=== PATIENT | male | born 1960 | race Caucasian/White ===

== ENCOUNTER → 2019-12-03 11:09 | Outpatient (BNVA) | payer BC, SELFPAY | PROVIDERS: Family Provider Internal Medicine; PCP Internal Medicine; Visit Provider Family Medicine | DX: I10 Essential (primary) hypertension (principal); R35.1 Nocturia; F41.9 Anxiety disorder, unspecified; F17.219 Nicotine dependence, cigarettes, with unspecified nicotine-induced disorders; H16.133 Photokeratitis, bilateral | CPT/HCPCS: 80053; 80061; 82044; 84153; 85025 ==

== ENCOUNTER → 2019-12-04 16:38 | Outpatient (BNVA) | payer BC, SELFPAY | PROVIDERS: Family Provider Internal Medicine; PCP Internal Medicine; Visit Provider Family Medicine | DX: D53.9 Nutritional anemia, unspecified (principal); I10 Essential (primary) hypertension; R35.1 Nocturia; F41.9 Anxiety disorder, unspecified; F17.219 Nicotine dependence, cigarettes, with unspecified nicotine-induced disorders; H16.133 Photokeratitis, bilateral | CPT/HCPCS: 82607 ==

== ENCOUNTER → 2020-01-19 13:17 | Outpatient (BNVA) | payer BC, SELFPAY | PROVIDERS: Family Provider Internal Medicine; PCP Internal Medicine; Referring Provider Family Medicine; Visit Provider Dermatology | DX: D48.9 Neoplasm of uncertain behavior, unspecified (principal); L57.0 Actinic keratosis; L73.8 Other specified follicular disorders; D22.9 Melanocytic nevi, unspecified; L82.1 Other seborrheic keratosis | CPT/HCPCS: 17000; 17003; 99203 ==

== ENCOUNTER → 2020-02-04 12:17 | Outpatient (BNVA) | payer BC, SELFPAY | PROVIDERS: Family Provider Internal Medicine; PCP Internal Medicine; Visit Provider Nurse Practitioner Family | DX: Z11.59 Encounter for screening for other viral diseases (principal) | CPT/HCPCS: 87635 ==

== ENCOUNTER → 2020-08-27 10:43 | Outpatient (BNVA) | payer OTHER, SELFPAY | PROVIDERS: Family Provider Internal Medicine; PCP Internal Medicine; Visit Provider Family Medicine | DX: R10.13 Epigastric pain (principal); F17.219 Nicotine dependence, cigarettes, with unspecified nicotine-induced disorders | CPT/HCPCS: 85025 ==

== ENCOUNTER → 2020-11-10 08:38 | Outpatient (BNVA) | payer OTHER, SELFPAY | PROVIDERS: Family Provider Internal Medicine; PCP Family Medicine; Visit Provider Family Medicine | DX: I10 Essential (primary) hypertension (principal); N40.1 Benign prostatic hyperplasia with lower urinary tract symptoms; R39.12 Poor urinary stream; K63.5 Polyp of colon; R10.13 Epigastric pain; F41.9 Anxiety disorder, unspecified; F17.219 Nicotine dependence, cigarettes, with unspecified nicotine-induced disorders | CPT/HCPCS: 80053; 80061; 82043; 84153; 85025 ==

== ENCOUNTER 2020-12-13 09:28 | Outpatient (CLI) | payer OTHER, SELFPAY ==
--- NOTE | 2020-12-13 09:38 | CT_ITS ---
WS: [id number] LDCT LUNG CANCER SCREENING TECHNIQUE: Noncontrast CT of the chest with coronal and sagittal reformatted images. CLINICAL INFORMATION: current everyday smoker COMPARISON: None. DLP: 55.38 mGy.cm DIvol: 1.[address] scans at [facility] use at least one of these dose optimization techniques: automat ed exposure control; mA and/or kV adjustment per patient size (includes targeted exams where dose is matched to clinical indication); or iterative reconstruction. FINDINGS: Patchy infiltrates in the left lower lobe. Recommend correlation for pneumonitis. This may be infectious or inflammatory. Subpleural noncalcified nodules in the right upper lobe the largest measuring 4 mm. A few hazy subple ural and ground glass opacities in the upper lobes bilaterally likely inflammatory No mediastinal or hilar lymphadenopathy. Aortic calcification. Coronary calcification. Slightly ectat ic ascending thoracic aorta measuring 4.3 CM. Adrenal glands are normal. Small esophageal hiatal hernia. Left hepatic cyst measuring 1.2 CM. Mild thoracic curve convex right. Moderate thoracic kyphosis in the upper thoracic spine. CT/CT lung screening [id number] IMPRESSION: LUNG-RADS: 3-Probably Benign FOLLOW UP: 6 Month LDCT
== END 2020-12-13 09:29 | disposition home or self-care (01) ==
PROVIDERS: PCP Family Medicine; Visit Provider Family Medicine
DX: F17.210 Nicotine dependence, cigarettes, uncomplicated (principal); Z12.2 Encounter for screening for malignant neoplasm of respiratory organs; K44.9 Diaphragmatic hernia without obstruction or gangrene
CPT/HCPCS: 71271

== ENCOUNTER → 2021-03-14 10:52 | Outpatient (BNVA) | payer OTHER, SELFPAY | PROVIDERS: PCP Family Medicine; Visit Provider Surgery | DX: Z11.52 Encounter for screening for COVID-19 (principal); Z20.822 Contact with and (suspected) exposure to COVID-19 | CPT/HCPCS: 87635 ==

== ENCOUNTER 2021-03-17 09:15 | Day surgery (SDC) | payer OTHER, SELFPAY ==
[2021-03-15 15:17] VITALS: BMI 25.0
--- NOTE | 2021-03-17 09:21 | W.PM.OPSFHP ---
Same Day Surgery H&P Indication for Procedure/HPI DATE OF PROCEDURE: March 17, 2021 CHIEF COMPLAINT/INDICATIONFOR SURGICAL PROCEDURE: panendoscopy PREOP DIAGNOSIS: EGD/colon PLANNED PROCEDRUE: Operation Date: 03/17/21 11:00 Proposed Procedures p Colonoscopy 35949 K63.52(Not Applicable) - Jeff Carr MD s EGD 46115 K63.52(Not Applicable) - Jeff Carr MD Medications/Allergies* Allergies/Adverse Reactions Allergy/AdvReac Type Severity Reaction Status Date / Time tetracycline AdvReac Mild rash Verified 03/15/21 15:19 Pertinent History/Comorbid Conditions* Medical History (Updated 12/29/20 @ 15:22 by Karo Mccarthy DO) Anxiety Essential hypertension Gastritis Surgical History (Updated 12/03/20 @ 09:55 by Jeff Carr MD) H/O carpal tunnel repair H/O esophagogastroduodenoscopy H/O knee surgery History of appendectomy History of back surgery History of colonoscopy with polypectomy 2016 History of decompression of ulnar nerve History of neck surgery History of shoulder surgery Family History (Updated 12/03/19 @ 10:35 by Geovanna Cueto LPN) Hypertension Social History Smoking and tobacco status: current every day smoker cigarettes Packs smoked per day: 0.5 Alcohol intake: current Alcohol intake frequency: holidays/special occasions only Pertinent Exam Findings alert, oriented x 3 and regular rate & rhythm Recommendations Surgery/Procedure today Coding Level of Care Code Acute Residential Subcontractor for Janell Diaz
--- NOTE | 2021-03-17 10:08 | ANES.PREANE2 ---
Pre-Anesthetic Assessment Pre-Anesthetic Assessment: Height/Weight: Height 1.7 m Weight 72.575 kg Preop Diagnosis: panendoscopy Proposed Procedure: Operation Date: 03/17/21 11:00 Proposed Procedures p Colonoscopy 99372 K63.52(Not Applicable) - Jeff Carr MD s EGD 77003 K63.52(Not Applicable) - Jeff Carr MD Was Beta Brenton taken within 24 hours: N/A Was Clonidine taken within 24 hours: N/A Social: Social History: Tobacco Packs per day: 1 Exam: Pre-Anes Outpt Exam: alert, oriented x 3, clear to auscultation bilaterally and regular rate & rhythm Airway: Submandibular: WNL Cervical ROM: WNL MP: 2 History/ROS: No significant history except as noted and No significant complaints Pulmonary: Pulmonary: COPD CV/HEM: CV/HEM: HTN Neuropsych: Neuropsych: Anxiety Anesthetic Plan: ASA status: 2 Anesthesia: Anesthesia Evaluation and MAC Risk of > 500 ml blood loss (7ml/kg in children): No PFSH Anesthesia PFSH: Medical History Anxiety Essential hypertension Gastritis Surgical History H/O carpal tunnel repair H/O esophagogastroduodenoscopy H/O knee surgery History of appendectomy History of back surgery History of colonoscopy with polypectomy 2015 History of decompression of ulnar nerve History of neck surgery History of shoulder surgery Family History Other Hypertension Social History Smoking and tobacco status: current every day smoker cigarettes Packs smoked per day: 0.5 Alcohol intake: current Alcohol intake frequency: holidays/special occasions only Data Anesthesia Cardiac Studies: No Data to Display
[2021-03-17 10:22] VITALS: BP 148/92; PULSE 79; RESP 18; TEMP 36.7; O2SAT 98
[2021-03-17] MEDS: sodium chloride 0.9% 1,000 ML 30 ML IV (10:34)
[2021-03-17 11:33] VITALS: BP 99/77; PULSE 93; RESP 18; TEMP 36.6; O2SAT 94
--- NOTE | 2021-03-17 12:56 | ANE.PACU2 ---
Inpatient post-anesthesia follow up: Airway intact: Yes Vital signs: Temperature 97.9 F Pulse Rate 93 Respiratory Rate 18 Blood Pressure 99/77 Pulse Oximetry 94 Oxygen Delivery Me thod Room Air Oxygen Flow Rate Fraction of Inspir ed Oxygen Hydration adequate: Yes Nausea and vomiting: No Pain level: 1 Mental status: Baseline
== END 2021-03-17 12:09 | disposition home or self-care (01) ==
PROVIDERS: PCP Family Medicine; Visit Provider Surgery
PROC: 0DJD8ZZ Inspection of Lower Intestinal Tract, Via Natural or Artificial Opening Endoscopic (ICD-10-PCS; CPT 45378; principal; 2021-03-17 11:00)
PROC: 0DJ08ZZ Inspection of Upper Intestinal Tract, Via Natural or Artificial Opening Endoscopic (ICD-10-PCS; CPT 43235; 2021-03-17 11:00)
DX: K21.00 Gastro-esophageal reflux disease with esophagitis, without bleeding (principal); K29.60 Other gastritis without bleeding; D12.4 Benign neoplasm of descending colon; K64.8 Other hemorrhoids; I10 Essential (primary) hypertension; J44.9 Chronic obstructive pulmonary disease, unspecified; Z86.010 Personal history of colon polyps
CPT/HCPCS: 43239; 45380; 88305; 96360; J2704; J7030

== ENCOUNTER → 2021-12-02 10:48 | Outpatient (BNVA) | payer OTHER, SELFPAY | PROVIDERS: PCP Family Medicine; Visit Provider Family Medicine | DX: I10 Essential (primary) hypertension (principal); K29.50 Unspecified chronic gastritis without bleeding; F41.9 Anxiety disorder, unspecified; N40.1 Benign prostatic hyperplasia with lower urinary tract symptoms; R39.12 Poor urinary stream | CPT/HCPCS: 80053; 80061; 82043; 84153; 85025 ==

== ENCOUNTER 2022-02-02 12:05 | Outpatient (CLI) | payer OTHER, SELFPAY ==
--- NOTE | 2022-02-02 11:15 | CT_ITS ---
WS: [id number] CT head wo con* [id number] REASON FOR EXAM: cva IV CONTRAST ADMINISTERED: None. TOTAL EXAM DLP: 1094.[address] scans at [facility] use at least one of these dose optimization techniques: automat ed exposure control; mA and/or kV adjustment per patient size (includes targeted exams where dose is matched to clinical indication); or iterative reconstruction. FINDINGS: There is no midline shift or other significant mass effect. No findings of intracranial hemorrhage. No focal brain parenchymal abnormality. CSF spaces are normal. The base of the skull and the bony calvarium are intact. CT/CT head wo con* [id number] IMPRESSION: No acute intracranial abnormality.
== END 2022-02-02 12:06 | disposition home or self-care (01) ==
LOC: RAD 12:06
PROVIDERS: PCP Family Medicine; Visit Provider Emergency Medicine
DX: I63.9 Cerebral infarction, unspecified (principal)
CPT/HCPCS: 70450

== ENCOUNTER 2022-03-24 09:10 | Outpatient (CLI) | payer OTHER, SELFPAY ==
--- NOTE | 2022-03-24 09:15 | USCV_ITS ---
LuxorJm munguia Age: 62 Gender: M : 1960 Exam Date: 03/24/2022 09:22 Ordering Phys: Karo Mccarthy DO Technologist: NIKIA [place] [facility] [place]: Syncope Risk Factors: Previous Vascular Surgery: Right Brachial BP: / Left Brachial BP: / Right Left Velocity (cm/s) Spectral Plaque Velocity (cm/s) Spectral Plaque Syst/Diast Broadening Syst/Diast Broadening 62.40/ 17.90 Hetro Prox CCA 68.40 / 21.40 Hetro 77.80/ 22.20 Mid CCA 85.40 / 28.20 67.50/ 18.80 Distal CCA 65.30 / 14.80 Hetro 70.10/ 21.40 Prox ICA 61.40 / 20.20 64.10/ 22.20 Mid ICA 45.10 / 24.10 58.10/ 20.50 Distal ICA 56.70 / 21.80 68.40 ECA 91.70 0.90 ICA/CCA 0.72 Antegrade Vertebral Antegrade 40.10/ 13.80 cm/s 50.50/ 14.00 cm/s Tri Subclavian Tri 102.5 86.20 0 FINDINGS No significant obstructive lesions noted in the extracranial carotid system. CONCLUSIONS Right ICA stenosis <50%. Moderate calcified atheromatous plaque right carotid bulb/ICA. Left ICA stenosis <50%. Mild calcified atheromatous plaque left carotid bulb/ICA. Normal antegrade Doppler flow noted in the right vertebral artery. Normal antegrade Doppler flow noted in the left vertebral artery. Hardeep Smith MD (Electronically Signed) Final Date: 24 March 2022 17:32 S
--- NOTE | 2022-03-24 10:00 | USCV_ITS ---
Jm Meyers Age: 62 Gender: M : 1960 Exam Date: 03/24/2022 09:53 Ordering Phys: Karo Mccarthy DO Technologist: RADHA Exam Location: [facility] – [place] Indication: CHEST PAIN, PRESYNCOPE BP: 142 / 82 HR: 61 Rhythm: Sinus Technical Quality: Adequate MEASUREMENTS (Male / Female) Normal Values 2D ECHO LVOT Diameter 2.0 cm LV Ejection Fraction MOD 2C 64.9 % LV Ejection Fraction 2C AL 64.4 % LA Diameter 3.6 cm LA Width 3.5 cm LA Height 4.0 cm RA Width 3.7 cm RA Height 4.8 cm Aorta at Sinotubular Diameter 3.2 cm IVC Diameter 1.8 cm M-MODE Aortic Annulus Diameter 3.0 cm LA Ao Ratio MM 1.1 MV E Point Septal Separation 0.6 cm DOPPLER AV Peak Velocity 141.3 cm/s LVOT Peak Velocity 143.0 cm/s AV Area Cont Eq vti 3.5 cm squared AV Area Cont Eq pk 3.3 cm squared MV Peak Velocity 111.0 cm/s MV Area PHT 4.4 cm squared Mitral E to A Ratio 1.1 MV E' Velocity 53.0 cm/s Mitral E to MV E' Ratio 11.6 Mitral E to LV E' Lateral Ratio 13.3 Mitral E to LV E' Septal Ratio 10.3 TR Peak Velocity 225.2 cm/s TR Peak Gradient 20.3 mmHg TR Mean Velocity 167.7 cm/s TR Mean Gradient 12.4 mmHg TR Velocity Time Integral 56.8 cm TV Peak E Velocity 52.0 cm/s Right Atrial Pressure 3.0 mmHg Pulmonary Artery Systolic Pressu 23.3 mmHg PV Peak Velocity 108.0 cm/s RV Acceleration Time 0.1 s RV Ejection Time 0.3 s RV AcT/ET 0.5 FINDINGS Left Ventricle Normal left ventricular size, systolic function and wall thickness, with no regional wall motion abnormalities. Left ventricular ejection fraction is estimated at 65 %. Normal diastolic function. Right Ventricle Normal right ventricular size and systolic function. Right ventricular systolic pressure 23.3 mmHg. Right Atrium Normal right atrial size. Left Atrium Normal left atrial size. Mitral Valve Structurally normal mitral valve. No mitral valve stenosis. Trace mitral valve regurgitation. Aortic Valve Structurally normal trileaflet aortic valve. No aortic valve stenosis. Mild aortic valve regurgitation. Tricuspid Valve Structurally normal tricuspid valve. No tricuspid valve stenosis. Trace tricuspid valve regurgitation. Pulmonic Valve Structurally normal pulmonic valve. No pulmonary valve stenosis. No pulmonary valve regurgitation. Pericardium No pericardial effusion. Aorta Normal size aortic root and proximal ascending aorta. IVC Normal IVC dimension with >50% respiratory change of the inferior vena cava. CONCLUSIONS 1. Normal left ventricular size, systolic function and wall thickness, with no regional wall motion abnormalities. Left ventricular ejection fraction is estimated at 65 %. Normal diastolic function. 2. Mild aortic valve regurgitation. 3. No prior similar studies to compare. Anita De Dios MD (Electronically Signed) Final Date: 25 March 2022 12:06 S
== END 2022-03-24 23:59 | disposition home or self-care (01) ==
PROVIDERS: PCP Family Medicine; Visit Provider Family Medicine
DX: R55 Syncope and collapse (principal); I35.1 Nonrheumatic aortic (valve) insufficiency; I65.23 Occlusion and stenosis of bilateral carotid arteries; R07.9 Chest pain, unspecified
CPT/HCPCS: 93306; 93880

== ENCOUNTER 2022-05-05 07:06 | Outpatient (CLI) | payer OTHER, SELFPAY ==
--- NOTE | 2022-05-05 | ECG_ITS ---
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 Interpretive Statements NAME OF STUDY: EXERCISE SESTAMIBI STRESS TEST INDICATION: Atypical Chest Pain Baseline blood pressure of 146/87 mm Hg, heart rate of 63 beats per minute and oxygen saturation of 97%. EKG showed sinus rhythm, normal axis with possible old septal infarct. The patient exercised for 11 minutes 51 seconds on a standard Maxim protocol. Patient attained a maximum heart rate of 139 beats per minute(88% of the maximum predicted heart rate) with a blood pressure at the peak exercise of 197/88 mm Hg and oxygen saturation 96%. The EKG at the peak exercise revealed sinus tachycardia with no significant ST-T wave changes. Patient did not have any chest pain or any significant arrhythmis with the exercise During the recovery phase, there were no new changes. Blood pressure at the end of the recovery phase was 154/86 mm Hg with a heart rate of 100 beats per minute and oxygen saturation of 98%. CONCLUSION: 1. Normal EKG response to treadmill exercise. 2. No exercise-induced chest pain or cardiac arrhythmia. 3. Excellent exercise tolerance, attained a maximum of 13.5 METs. 4. Baseline hypertension with normal response to exercise. 5. Perfusion scan will be documented separately. Electronically Signed On 05-05-2022 12:29:21 ARMHOLE B[employer] by Anita De Dios M.D. [id number]
[2022-05-05 08:06] VITALS: BMI 24.3
--- NOTE | 2022-05-05 08:07 | NMCV_ITS ---
NM marcial perf SPECT r/s* [id number] Jm Meyers Age: 62 Gender: M : 1960 Exam Date: 05/05/2022 08:12 Ordering Phys: Karo Mccrathy DO Technologist: RUEL Hernandez Exam Location: [facility] Indications: CHEST PAIN STRESS TEST Please see separate stress test report in [facility] for full findings IMAGE PROTOCOL Rest/Stress 1 Exercise Day Radiopharmaceutical Dose (mCi) Administration Site Administered by Rest: Tc-99m 10.9 IV RUEL Gutierrez Sestamibi Stress:Tc-99m 32.6 IV RUEL Gutierrez Sestamibi Rest: 05-May-2022 60 Discovery 630 Stress: 05-May-2022 15 Discovery 630 Radiopharmaceutical was injected at 87 % maximum heart rate. Images obtained in supine and prone position. SPECT RESULTS Technical Quality: Excellent Raw Data Analysis: Normal Image Corrections: No attenuation or motion correction applied Summed Stress Score: 0 Summed Rest Score: 6 Summed Difference Score: 0 PERFUSION FINDINGS Small sized perfusion abnormality of mild severity of mid inferoseptal, apical septal, apical inferior and apical chacko on rest images with improved tracer uptake on stress images. This is suggestive of attenuation artifact. FUNCTIONAL RESULTS (calculated via Gated SPECT) Stress Image LV EF (%): 74 Stress EDV (mL):108 TID: 0.91 Stress ESV (mL):28 FUNCTIONAL FINDINGS: The left ventricle is normal in size. Transient Ischemia Dilatation of 0.91. There is normal left ventricular systolic function. The left ventricular ejection fraction is normal with a value of 74%. There is normal left ventricular wall thickening. IMPRESSIONS 1. Myocardial perfusion imaging is normal. Attenuation artifact noted in mid inferoseptal, apical septal, apical inferior and apical chacko. 2. Overall left ventricular systolic function is normal without regional wall motion abnormalities, LVEF=74%. 3. EKG portion of the study will be reported separately. 4. Scan indicates low risk for cardiac events. Anita De Dios MD (Electronically Signed) Final Date: 05 May 2022 12:25 S
[2022-05-05 09:10] VITALS: BP 154/86; PULSE 100
== END 2022-05-05 07:07 | disposition home or self-care (01) ==
PROVIDERS: PCP Family Medicine; Visit Provider Family Medicine
DX: R07.89 Other chest pain (principal)
CPT/HCPCS: 36415; 78452; 93017; A9500

== ENCOUNTER → 2022-11-23 14:30 | Outpatient (BNVA) | payer OTHER, SELFPAY | PROVIDERS: PCP Family Medicine; Visit Provider Family Medicine | DX: I10 Essential (primary) hypertension (principal); R63.4 Abnormal weight loss; R35.1 Nocturia | CPT/HCPCS: 80053; 80061; 82043; 84153; 84443; 85025; 87806 ==

== ENCOUNTER → 2022-12-05 09:41 | Outpatient (BNVA) | payer OTHER, SELFPAY | PROVIDERS: PCP Family Medicine; Visit Provider Family Medicine | DX: R89.9 Unspecified abnormal finding in specimens from other organs, systems and tissues (principal) | CPT/HCPCS: 82607; 82728; 82746; 83550 ==

== ENCOUNTER 2022-12-06 14:10 | Outpatient (CLI) | payer OTHER, SELFPAY ==
--- NOTE | 2022-12-06 14:30 | CT_ITS ---
WS: [id number] LDCT LUNG CANCER SCREENING HISTORY: screening TECHNIQUE: Axial imaging performed from the apices to 1 cm below the costophrenic angles. Coronal and sagittal reformats are submitted with axial MIP series. All CT scans at [facility] use at least one of these dose optimization techniques: automated exposure control; mA and/or kV adjustment per patient size (includes targeted exams where dose is matched to clinical indication); or iterativ e reconstruction. DLP: 57.52 mGy.cm DIvol: Mean CTDIvol: 1.10 (mGy) COMPARISON: 12/13/2020 Diagnostic quality: Satisfactory Lungs: Mild pulmonary hyperexpansion. Previously described less than 4 mm nodules in the RIGHT upper lobe are very difficult to identified on today's examination. No new or enlarging nodules are identif ied. Reidentified is a 3 mm noncalcified nodule in the LEFT upper lobe on image 55. Mild hazy attenua tion. No groundglass nodule. No endobronchial lesion. Heart: Normal size heart with no pericardial effusion.. Other findings: No mediastinal or hilar enlargement of lymph nodes or adenopathy. Mild atherosclerosi s aorta. Normal size pulmonary artery. Mild coronary artery atherosclerotic plaque. Bilateral gynecom astia. Small hiatal hernia. No adrenal mass. No change in hepatic cyst at 1.2 cm. Thoracolumbar scoli osis and degenerative changes in the disc spaces. CT/CT lung screening [id number] IMPRESSION: LUNG-RADS: 2-Benign Appearance or Behavior FOLLOW UP: 12 Month: Continue annual screening with LDCT OTHER FINDINGS (S MODIFIER): None.
== END 2022-12-06 14:11 | disposition home or self-care (01) ==
PROVIDERS: PCP Family Medicine; Visit Provider Family Medicine
DX: Z12.2 Encounter for screening for malignant neoplasm of respiratory organs (principal); F17.219 Nicotine dependence, cigarettes, with unspecified nicotine-induced disorders
CPT/HCPCS: 71271

== ENCOUNTER 2023-01-31 09:02 | Day surgery (SDC) | payer OTHER, SELFPAY ==
[2023-01-29 12:19] VITALS: BMI 23.6
--- NOTE | 2023-01-31 09:15 | PM.HP ---
Providers/Chief Complaint Primary Care Provider: Karo Mccarthy DO Chief Complaint: R10.13 History of Present Illness Jm Meyers is a 62 year old male Review of Systems General: Reports: 10 or more systems reviewed and unremarkable except in HPI and below Medications/Allergies Home Medications Medication Instructions Recorded Confirmed Last Taken Type amlodipine 5 mg tablet (Norvasc) 5 mg PO DAILY #90 tabs 11/23/22 01/29/23 01/29/23 Rx lisinopril 30 mg tablet 30 mg PO DAILY #90 tabs 11/23/22 01/29/23 01/29/23 Rx sertraline 50 mg tablet 50 mg PO DAILY #90 tabs 11/23/22 01/29/23 01/29/23 Rx cyanocobalamin (vitamin B-12) 1,000 mcg SUBCUT UNK 01/29/23 01/29/23 01/23/23 History 1,000 mcg/mL injection solution pantoprazole 40 mg tablet,delayed 40 mg PO DAILY 01/29/23 01/29/23 01/29/23 History release varenicline 0.5 mg (11)-1 mg (42) 0.5 ea PO BID 01/29/23 01/29/23 History tablets in a dose pack (Chantix Starting Month Box) Allergies Allergy/AdvReac Type Severity Reaction Status Date / Time codeine Allergy ALGY-Rash Verified 01/31/23 09:15 tetracycline AdvReac Mild rash Verified 01/31/23 09:15 PFSH Acute PFSH: Medical History (Updated 01/31/23 @ 09:16 by Velasquez Torres DO) Anxiety Esophagitis determined by endoscopy Essential hypertension Gastritis Vitamin B12 deficiency Surgical History H/O carpal tunnel repair H/O esophagogastroduodenoscopy (03/17/21) Esophagitis and gastritis H/O knee surgery History of appendectomy History of back surgery History of colonoscopy with polypectomy (03/17/21) Descending and rectal colon polyp History of decompression of ulnar nerve History of neck surgery History of shoulder surgery Family History Other Hypertension Social History Smoking and tobacco status: current every day smoker cigarettes Packs smoked per day: 0.5 Alcohol intake: current Alcohol intake frequency: holidays/special occasions only Substance/Drug Use: never Vitals/I&O/Wt Weight last 48 hrs Weight 155 lb A&P Assessment and plan (1) Epigastric pain: Plan EGD Attestations Medical Necessity Statement*: home Coding Level of Care Code Acute Code for [facility] Fwd Diagnoses Epigastric pain R10.13
[2023-01-31 09:21] VITALS: BP 124/83; PULSE 66; RESP 12; TEMP 36.8; O2SAT 97
[2023-01-31] MEDS: sodium chloride 0.9% 1,000 ML 30 ML IV (09:29)
--- NOTE | 2023-01-31 09:46 | ANES.PREANE2 ---
Pre-Anesthetic Assessment Height/Weight: Height 1.73 m Weight 70.307 kg Temp Pulse Resp BP Pulse Ox O2 Del Method 98.3 F 66 12 124/83 97 Room Air 01/31/23 09:21 01/31/23 09:21 01/31/23 09:21 01/31/23 09:21 01/31/23 09:21 01/31/23 09:21 Preop Diagnosis: GERD Operation Date: 01/31/23 10:00 Proposed Procedures p EGD 11617, R10.13(Not Applicable) - Velasquez Torres DO Familial anesthetic complications: None Was Beta Brenton taken within 24 hours: N/A Was Clonidine taken within 24 hours: N/A Last intake: Intake Last Liquid Date 01/30/23 Last Liquid Time 23:00 Last Solid Date 01/30/23 Last Solid Time 23:00 Social quit smoking 3 weeks ago (1ppd x47 years, previous daily alcohol Exam alert, oriented x 3, clear to auscultation bilaterally and regular rate & rhythm Airway Submandibular: within normal limits Cervical ROM: within normal limits Mallampati: Class II Dentition: full History/ROS No significant history except as noted Pulmonary Chronic Obstructive Pulmonary Disease (does not use inhaler ) CV/HEM Hypertension None reported Hepatic None reported GI Gastroesophageal Reflux Disease Metabolic None reported Musc/skel None reported Neuropsych None reported Anesthetic Plan ASA status: 2 Anesthesia: Anesthesia Evaluation and MAC Risk of > 500 ml blood loss (7ml/kg in children): No Medications/Allergies Home Medications Medication Instructions Recorded Confirmed Last Taken Type amlodipine 5 mg tablet (Norvasc) 5 mg PO DAILY #90 tabs 11/23/22 01/31/23 01/30/23 Rx lisinopril 30 mg tablet 30 mg PO DAILY #90 tabs 11/23/22 01/31/23 01/30/23 Rx sertraline 50 mg tablet 50 mg PO DAILY #90 tabs 11/23/22 01/31/23 01/30/23 Rx cyanocobalamin (vitamin B-12) 1,000 mcg SUBCUT UNK 01/29/23 01/31/23 01/23/23 History 1,000 mcg/mL injection solution pantoprazole 40 mg tablet,delayed 40 mg PO DAILY 01/29/23 01/31/23 01/30/23 History release varenicline 0.5 mg (11)-1 mg (42) 0.5 ea PO BID 01/29/23 01/31/23 01/30/23 History tablets in a dose pack (Chantix Starting Month Box) Allergies Allergy/AdvReac Type Severity Reaction Status Date / Time codeine Allergy ALGY-Rash Verified 01/31/23 09:15 tetracycline AdvReac Mild rash Verified 01/31/23 09:15 Current Medications Generic Name Dose Route Start Last Admin Trade Name Kaylee PRN Reason Stop Dose Admin Sodium Chloride 1,000 mls @ 30 mls/hr 01/31/23 09:15 01/31/23 09:29 Sodium Chloride 0.9% IV 02/01/23 09:14 30 mls/hr .Q24H DEBBIE Administration PFSH Anesthesia Medical History (Updated 01/31/23 @ 09:16 by Velasquez Torres DO) Anxiety Esophagitis determined by endoscopy Essential hypertension Gastritis Vitamin B12 deficiency Surgical History H/O carpal tunnel repair H/O esophagogastroduodenoscopy (03/17/21) Esophagitis and gastritis H/O knee surgery History of appendectomy History of back surgery History of colonoscopy with polypectomy (03/17/21) Descending and rectal colon polyp History of decompression of ulnar nerve History of neck surgery History of shoulder surgery Family History Other Hypertension Social History Smoking and tobacco status: current every day smoker cigarettes Packs smoked per day: 0.5 Alcohol intake: current Alcohol intake frequency: holidays/special occasions only Substance/Drug Use: never Data Anesthesia Cardiac Studies: Echocardiogram 03/24/22 Sestamibi Stress Test (Cardiology) 05/05/22
[2023-01-31 10:52] VITALS: BP 120/82; PULSE 70; RESP 16; TEMP 36.6; O2SAT 99
[2023-01-31 11:04] VITALS: BP 119/81; PULSE 67; RESP 16; O2SAT 97
--- NOTE | 2023-01-31 11:12 | ANE.PACU2 ---
Inpatient post-anesthesia follow up: Airway intact: Yes Vital signs: Temperature 97.8 F Pulse Rate 67 Respiratory Rate 16 Blood Pressure 119/81 Pulse Oximetry 97 Oxygen Delivery Me thod Room Air Oxygen Flow Rate Fraction of Inspir ed Oxygen Hydration adequate: Yes Nausea and vomiting: No Pain level: 0 Mental status: Baseline
== END 2023-01-31 11:26 | disposition home or self-care (01) ==
PROVIDERS: PCP Family Medicine; Visit Provider Surgery
PROC: 0DJ08ZZ Inspection of Upper Intestinal Tract, Via Natural or Artificial Opening Endoscopic (ICD-10-PCS; CPT 43235; principal; 2023-01-31 10:00)
DX: R10.13 Epigastric pain (principal); I10 Essential (primary) hypertension; F17.210 Nicotine dependence, cigarettes, uncomplicated; Z87.891 Personal history of nicotine dependence; J44.9 Chronic obstructive pulmonary disease, unspecified; K21.9 Gastro-esophageal reflux disease without esophagitis; K29.50 Unspecified chronic gastritis without bleeding
CPT/HCPCS: 43239; 88305; 88342; J2704; J7030

== ENCOUNTER 2023-02-09 06:12 | Outpatient (CLI) | payer OTHER, SELFPAY ==
--- NOTE | 2023-02-09 06:30 | US_ITS ---
WS: [id number] RIGHT UPPER QUADRANT ULTRASOUND HISTORY: Epigastric pain COMPARISON: None available. Liver: 17.2 cm in length. Liver is top normal size. Minimally complex cyst in the liver. This appears to be in the LEFT lobe of the liver. Cyst measures 1.9 x 0.9 x 2.2 cm. There is a small thin septati on present. This cyst was previously described on the study from 12/13/2020 with no increase in size. Portal Vein: Normal hepatopetal flow with monophasic waveform. Gallbladder: Normally distended. Very tiny amount of sludge in the gallbladder. No shadowing or stone s. No wall thickening. CBD: 0.5 cm Pancreas: Normal size and echogenicity. Right kidney: 9.2 cm in length. Normal size and echogenicity. No hydronephrosis or mass. Aorta and IVC: Unremarkable abdominal aorta and IVC. No ascites. IMPRESSION: 1. Normal gallbladder. 2. Mildly complex hepatic cyst. Similar in size to the prior CT of 12/13/2020. 3. No bile duct dilatation.
== END 2023-02-09 06:13 | disposition home or self-care (01) ==
PROVIDERS: PCP Family Medicine; Visit Provider Surgery
DX: R10.13 Epigastric pain (principal); K76.89 Other specified diseases of liver
CPT/HCPCS: 76705

== ENCOUNTER 2023-02-20 09:54 | Outpatient (CLI) | payer OTHER, SELFPAY ==
--- NOTE | 2023-02-20 10:00 | NM_ITS ---
WS: [id number] NUCLEAR MEDICINE HIDA SCAN CLINICAL INFORMATION: epigastric pain TECHNIQUE: Following intravenous administration of 7.4 mCi of technetium 99m mebrofenin, images of th e abdomen were obtained over the course of 60 minutes. Next, gallbladder ejection fraction was determ ined by obtaining preprandial and one-hour postprandial images of the gallbladder following oral ginny stion of Ensure. COMPARISON: Ultrasound 02/09/2023 FINDINGS: Normal hepatic uptake at 5 minutes. No hepatic excretion. Gallbladder is visualized by 30 minutes. No evidence of acute cholecystitis. Normal small bowel and bile duct activity. Gallbladder ejection fraction 82% within normal limits. No evidence of chronic cholecystitis. IMPRESSION: 1. No evidence of acute or chronic cholecystitis. 2. Gallbladder ejection fraction 82% within normal limits.
== END 2023-02-20 09:55 | disposition home or self-care (01) ==
LOC: RAD 09:55
PROVIDERS: PCP Family Medicine; Visit Provider Surgery
DX: R10.13 Epigastric pain (principal)
CPT/HCPCS: 78227; A9537

== ENCOUNTER 2023-02-26 10:03 | Day surgery (SDC) | payer OTHER, SELFPAY ==
[2023-02-23 14:32] VITALS: BMI 23.6
[2023-02-26] VITALS (12 sets, daily range): BP systolic 146–180; BP diastolic 75–96; PULSE 63–79; RESP 16–20; TEMP 36.2–36.6; O2SAT 91–100
--- NOTE | 2023-02-26 10:17 | W.PM.OPSUD ---
Surgery/Procedure H&P Update DATE OF PROCEDURE: February 26, 2023 DATE H&P PERFORMED: 02/20/23 H&P UPDATE INFORMATION: I have reviewed H&P completed within last 30 days, I have examined patient prior to procedure and No changes to prior documentation PLANNED PROCEDURE: Operation Date: 02/26/23 12:10 Proposed Procedures p [id number] lap rachel R10.11(Not Applicable) - Velasquez Torres,
[2023-02-26] MEDS: sodium chloride 0.9% 1,000 ML 30 ML IV (10:40)
[2023-02-26] MEDS: scopolamine 1.5 Patch 1 PATCH TRANSDERMA (10:41)
[2023-02-26] MEDS: ceFAZolin 2,000 MG in sodium chloride 0.9% (plus) 50 ML 100 MG IV (10:56)
[2023-02-26] MEDS: lidocaine-epi 2% 20 mL INJ INJECTION (11:35)
--- NOTE | 2023-02-26 11:56 | P.OP_ITS ---
Operative Report Date of procedure: February 26, 2023 Pre-op diagnosis: Right upper quadrant syndrome Post-op diagnosis: same Procedure done: Laparoscopic cholecystectomy Implants: None Specimens removed/disposition: Gallbladder Surgeon: Velasquez Torres DO Anesthesia: General Estimated blood loss (mL): 5 Complications: None apparent Brief History: This very pleasant 63-year-old gentleman who presented to my office with abdominal pain. After work-up, he was diagnosed with right upper quadrant syndrome. Laparoscopic cholecystectomy was indicated. The risk and benefits were explained and documented. I specifically discussed with him how there is a 20 to 30% chance that cholecystectomy will not relieve his symptoms but he would like to proceed. Procedure: Patient was wheeled into the operative room and placed on the OR table in a supine position. Abdomen was inspected prepped and draped in usual sterile fashion. Time-out was performed and all present were in agreement. A 15 blade scalp was used to make a stab incision in the left upper quadrant and intra- abdominal insufflation was achieved using a Veress needle. After localizing the tissue incisions were made and a 5 millimeter trocar was placed into the umbilicus as well as 2 in the right upper quadrant. A 12 millimeter trocar was placed in the epigastrium. Gallbladder was grasped and elevated. The triangle of Calot was carefully dissected using blunt dissection and electrocautery until the triangle of Calot clearly identified. The cystic duct was clipped proximally and double clipped distally. The duct was then ligated proximally. The cystic artery was doubly clipped and ligated. The gallbladder was then removed from the liver bed using electrocautery. The gallbladder was removed from the abdomen using an Endo-Catch bag through the epigastric incision. The liver bed was inspected and no bleeding was seen. The abdomen was irrigated and suctioned. All ports removed. Skin was washed and dried. Incisions were closed with 4-0 Monocryl in a subcuticular interrupted fashion. Skin glue was applied. Patient tolerated the procedure well.
[2023-02-26] MEDS: fentaNYL 50 mcg/mL INJ 2mL IVP (12:19)
--- NOTE | 2023-02-26 12:36 | ANES.PREANE2 ---
Pre-Anesthetic Assessment Height/Weight: Height 1.73 m Weight 70.307 kg Temp Pulse Resp BP Pulse Ox O2 Del Method O2 Flow Rate 97.9 F 70 18 175/96 92 Room Air 6 02/26/23 12:07 02/26/23 12:22 02/26/23 12:22 02/26/23 12:22 02/26/23 12:22 02/26/23 12:17 02/26/23 12:07 Operation Date: 02/26/23 12:10 Proposed Procedures p [id number] lap rachel R10.11(Not Applicable) - Velasquez Torres DO Familial anesthetic complications: none Was Beta Brenton taken within 24 hours: N/A Was Clonidine taken within 24 hours: N/A Last intake: Intake Last Liquid Date 02/25/23 Last Liquid Time 20:00 Last Solid Date 02/25/23 Last Solid Time 20:00 Social No alcohol and No tobacco Exam alert, oriented x 3, clear to auscultation bilaterally and regular rate & rhythm Airway Submandibular: within normal limits Cervical ROM: within normal limits Mallampati: Class II Pulmonary Chronic Obstructive Pulmonary Disease CV/HEM [place]pert[place] [facility] [place] Lower Back Pain Neuropsych Anxiety and Depression Anesthetic Plan ASA status: 3 Anesthesia: General Medications/Allergies Home Medications Medication Instructions Recorded Confirmed Last Taken Type amlodipine 5 mg tablet (Norvasc) 5 mg PO DAILY #90 tabs 11/23/22 02/26/23 02/25/23 Rx lisinopril 30 mg tablet 30 mg PO DAILY #90 tabs 11/23/22 02/26/23 02/25/23 Rx sertraline 50 mg tablet 50 mg PO DAILY #90 tabs 11/23/22 02/26/23 02/25/23 Rx cyanocobalamin (vitamin B-12) 1,000 mcg SUBCUT UNK 01/29/23 02/23/23 02/23/23 History 1,000 mcg/mL injection solution varenicline 0.5 mg (11)-1 mg (42) 0.5 ea PO BID 01/29/23 02/26/23 02/25/23 History tablets in a dose pack (Chantix Starting Month Box) folic acid 800 mcg tablet 800 mcg PO DAILY 02/23/23 02/26/23 02/25/23 History tramadol 50 mg tablet 100 mg PO Q6H PRN pain #40 tabs 02/26/23 Unknown Rx Allergies Allergy/AdvReac Type Severity Reaction Status Date / Time codeine Allergy ALGY-Rash Verified 02/26/23 10:11 tetracycline AdvReac Mild rash Verified 02/26/23 10:11 Current Medications Generic Name Dose Route Start Last Admin Trade Name Freq PRN Reason Stop Dose Admin Fentanyl 50 mcg 02/26/23 12:20 02/26/23 12:19 Fentanyl 50 Mcg/Ml Inj 2ml IVP 02/27/23 12:20 50 mcg Q5M PRN Administration Pain level 6-10 PACU Phase I Sodium Chloride 1,000 mls @ 30 mls/hr 02/26/23 10:30 02/26/23 10:40 Sodium Chloride 0.9% IV 02/27/23 10:29 30 mls/hr .Q24H DEBBIE Administration PFSH Anesthesia Medical History Anxiety Esophagitis determined by endoscopy Essential hypertension Gastritis Vitamin B12 deficiency Surgical History H/O carpal tunnel repair H/O esophagogastroduodenoscopy (03/17/21) Esophagitis and gastritis H/O knee surgery History of appendectomy History of back surgery History of colonoscopy with polypectomy (03/17/21) Descending and rectal colon polyp History of decompression of ulnar nerve History of neck surgery History of shoulder surgery Family History Other Hypertension Social History Smoking and tobacco status: current every day smoker cigarettes Packs smoked per day: 0.5 Alcohol intake: current Alcohol intake frequency: holidays/special occasions only Substance/Drug Use: never Data Anesthesia Cardiac Studies: Echocardiogram 03/24/22 Sestamibi Stress Test (Cardiology) 05/05/22
[2023-02-26] MEDS: TRAMadol 50 mg Tablet PO (12:51)
[2023-02-26] MEDS: morphine 4 mg/mL SDV 1 mL IVP (13:02)
--- NOTE | 2023-02-26 15:10 | ANE.PACU2 ---
Inpatient post-anesthesia follow up: Airway intact: Yes Vital signs: Temperature 97.2 F Pulse Rate 63 Respiratory Rate 16 Blood Pressure 146/82 Pulse Oximetry 94 Oxygen Delivery Me thod Room Air Oxygen Flow Rate 6 Fraction of Inspir ed Oxygen Hydration adequate: Yes Nausea and vomiting: No Pain level: 2 Mental status: Baseline
== END 2023-02-26 13:35 | disposition home or self-care (01) ==
PROVIDERS: PCP Family Medicine; Visit Provider Surgery
PROC: 0FT44ZZ Resection of Gallbladder, Percutaneous Endoscopic Approach (ICD-10-PCS; CPT 47562; principal; 2023-02-26 12:00)
DX: K81.1 Chronic cholecystitis (principal); J44.9 Chronic obstructive pulmonary disease, unspecified; I10 Essential (primary) hypertension; F17.210 Nicotine dependence, cigarettes, uncomplicated
CPT/HCPCS: 47562; 88304; J0690; J1100; J2270; J2405; J2704; J3010; J3490; J7030

== ENCOUNTER → 2023-05-22 15:29 | Outpatient (BNVA) | payer OTHER, SELFPAY | PROVIDERS: PCP Family Medicine; Visit Provider Family Medicine | DX: E53.8 Deficiency of other specified B group vitamins (principal); I10 Essential (primary) hypertension; F41.9 Anxiety disorder, unspecified | CPT/HCPCS: 80053; 82607; 82746; 85025 ==

== ENCOUNTER → 2023-11-13 10:18 | Outpatient (BNVA) | payer OTHER, SELFPAY | PROVIDERS: PCP Family Medicine; Visit Provider Family Medicine | DX: I10 Essential (primary) hypertension (principal); Z13.6 Encounter for screening for cardiovascular disorders; Z12.5 Encounter for screening for malignant neoplasm of prostate; N40.1 Benign prostatic hyperplasia with lower urinary tract symptoms; R39.12 Poor urinary stream; F41.9 Anxiety disorder, unspecified; R35.1 Nocturia; F17.219 Nicotine dependence, cigarettes, with unspecified nicotine-induced disorders | CPT/HCPCS: 80053; 80061; 82043; 85025; G0103 ==

== ENCOUNTER 2024-01-31 12:47 | Outpatient (CLI) | payer MEDICARE, SELFPAY ==
--- NOTE | 2024-01-31 12:45 | CT_ITS ---
WS: [id number] LDCT LUNG CANCER SCREENING HISTORY: screening TECHNIQUE: Axial imaging performed from the apices to 1 cm below the costophrenic angles. Coronal and sagittal reformats are submitted with axial MIP series. All CT scans at [facility] use at least one of these dose optimization techniques: automated exposure control; mA and/or kV adjustment per patient size (includes targeted exams where dose is matched to clinical indication); or iterativ e reconstruction. DLP: 58.20 mGy.cm DIvol: Mean CTDIvol: 1.10 (mGy) COMPARISON: 12/06/2022, 12/13/2020 Diagnostic quality: Satisfactory Lungs: Pulmonary hyperexpansion. Stable micronodules in this upper lobes. Increasing groundglass atte nuation and volume loss in the LEFT lower lobe. There is mild bronchial thickening and mild bronchiec tasis. Heart: Normal size heart. Other findings: No adenopathy identified on this unenhanced exam. Mild atherosclerosis aorta. Bilater al gynecomastia. Prior cholecystectomy. No adrenal mass. Increase in thoracic kyphosis with advanced degenerative disc disease in the thoracic spine. CT/CT lung screening [id number] IMPRESSION: LUNG-RADS: 3-Probably Benign FOLLOW UP: 6 Month LDCT OTHER FINDINGS (S MODIFIER): None. Recommend follow-up chest CT with IV contrast in 6 months to reevaluate the pro gressive volume loss, bronchial thickening, groundglass attenuation and bronchi ectasis in the LEFT lower lobe.
== END 2024-01-31 12:48 | disposition home or self-care (01) ==
LOC: RAD 12:48
PROVIDERS: PCP Family Medicine; Visit Provider Family Medicine
DX: K43.9 Ventral hernia without obstruction or gangrene (principal); F17.219 Nicotine dependence, cigarettes, with unspecified nicotine-induced disorders; Z12.2 Encounter for screening for malignant neoplasm of respiratory organs; F17.210 Nicotine dependence, cigarettes, uncomplicated; N62 Hypertrophy of breast; J47.9 Bronchiectasis, uncomplicated; I70.0 Atherosclerosis of aorta; R91.8 Other nonspecific abnormal finding of lung field; Z98.890 Other specified postprocedural states
CPT/HCPCS: 71271; 99204; 99214

== ENCOUNTER 2024-02-13 08:47 | Day surgery (SDC) | payer MEDICARE, SELFPAY ==
[2024-02-13] VITALS (11 sets, daily range): BP systolic 141–192; BP diastolic 81–105; PULSE 58–561; RESP 16–18; TEMP 36.2–36.7; O2SAT 93–100; BMI 23.6
--- NOTE | 2024-02-13 09:11 | P.ANESASSM_ITS ---
Pre-Anesthetic Assessment Height/Weight: Height 1.75 m Weight 72.575 kg Temp Pulse Resp BP Pulse Ox O2 Del Method 98.1 F 71 18 161/97 98 Room Air 02/13/24 09:06 02/13/24 09:06 02/13/24 09:06 02/13/24 09:06 02/13/24 09:06 02/13/24 09:06 Preop Diagnosis: Ventral hernia Operation Date: 02/13/24 10:15 Proposed Procedures p Ventral Hernia Repair (Open) w/ Mesh 33456, K43.9(Not Applicable) - Phong Blair MD Familial anesthetic complications: None Was Beta Brenton taken within 24 hours: N/A Was Clonidine taken within 24 hours: N/A Last intake: Intake Last Liquid Date 02/12/24 Last Liquid Time 21:30 Last Solid Date 02/12/24 Last Solid Time 19:00 Social Tobacco and No alcohol Exam alert, oriented x 3, clear to auscultation bilaterally and regular rate & rhythm Airway Mallampati: Class II Dentition: full Pulmonary Chronic Obstructive Pulmonary Disease CV/HEM Hypertension Anesthetic Plan ASA status: 3 Anesthesia: General Medications/Allergies Home Medications Medication Instructions Recorded Confirmed Last Taken Type lisinopril 30 mg tablet 30 mg PO DAILY #90 tabs 01/22/24 02/12/24 02/12/24 Rx sertraline 50 mg tablet 50 mg PO DAILY #90 tabs 01/22/24 02/12/24 02/12/24 Rx varenicline 0.5 mg (11)-1 mg (42) See Rx Instructions PO PER PKG DIR 02/01/24 02/12/24 Unknown Rx tablets in a dose pack (Scalent Systemstix #53 ea Starting Month Box) Allergies Allergy/AdvReac Type Severity Reaction Status Date / Time codeine Allergy ALGY-Rash Verified 02/12/24 15:47 tetracycline AdvReac Mild rash Verified 02/12/24 15:47 [facility] Anesthesia Medical History (Updated 01/31/24 @ 20:09 by Edouard Armenta MD) Bronchiectasis Severe tobacco use disorder Vitamin B12 deficiency Esophagitis determined by endoscopy Gastritis Essential hypertension Anxiety Surgical History History of laparoscopic cholecystectomy H/O esophagogastroduodenoscopy (03/17/21) Esophagitis and gastritis History of decompression of ulnar nerve History of colonoscopy with polypectomy (03/17/21) Descending and rectal colon polyp H/O carpal tunnel repair History of neck surgery History of back surgery History of appendectomy H/O knee surgery History of shoulder surgery Family History Other Hypertension Social History Smoking and tobacco/nicotine status: current every day tobacco/nicotine user c igarettes Packs smoked per day: 0.5 Alcohol intake: current Alcohol intake frequency: holidays/special occasions only Substance/Drug Use: never Data Anesthesia Cardiac Studies: Echocardiogram 03/24/22 Sestamibi Stress Test (Cardiology) 05/05
[2024-02-13] MEDS: sodium chloride 0.9% 1,000 ML 30 ML IV (09:19)
--- NOTE | 2024-02-13 10:42 | W.PM.OPSUD ---
Surgery/Procedure H&P Update DATE OF PROCEDURE: February 13, 2024 DATE H&P PERFORMED: 01/31/24 H&P UPDATE INFORMATION: I have reviewed H&P completed within last 30 days, I have examined patient prior to procedure and No changes to prior documentation PREOP DIAGNOSIS: Ventral hernia PLANNED PROCEDURE: Operation Date: 02/13/24 10:15 Proposed Procedures p Ventral Hernia Repair (Open) w/ Mesh [id number], K43.9(Not Applicable) - Phong Blair MD
[2024-02-13] MEDS: ceFAZolin 2,000 mg SDV 2000 MG IVP (12:52)
[2024-02-13] MEDS: lidocaine-epi 1% 20 mL INJ 10 ML INJECTION (13:38)
[2024-02-13] MEDS: BUPivacaine 0.25% INJ 10 mL INJECTION (13:38)
--- NOTE | 2024-02-13 14:02 | W.PM.BPONFUL ---
Pathology: None Implant(s): Ventralex ST hernia patch 2.5 inches Anesthesia: General Anesthesia Complications: None Brief history/preop diagnosis: 64-year-old male who presented with a ventral hernia (epigastrium) status post lap rachel a year ago. Risks and benefits were discussed and patient agreed to have surgical repair. Full operative report: Consent was obtained and the patient was taken to the operating room. He was placed supine. SCDs were on and functioning. Preoperative passive administered. General anesthesia induced. The abdomen was prepped and draped in the usual sterile fashion. Local infiltration was performed using lidocaine 1% with epinephrine. Skin was incised over the hernia defect. Tissues were dissected down to the level of the hernia sac. Hernia sac was dissected off of the subcutaneous tissues. The hernia sac was opened and it did not contain any bowel. Hernia sac was reduced into the abdomen. The fascial edges were freshened. Small skin flaps were also raised. A Ventralex ST hernia patch was placed in an intraperitoneal fashion. The mesh was fixed to the fascial layer using interrupted 2-0 Ethibond. I made sure to have 4 cm of overlap between mesh and fascial layer. I then proceeded to close the fascial layer anterior to the Ventralex mesh using 2-0 Ethibond. I closed the subcutaneous tissues in 2 layers using 3-0 Vicryl. Skin was closed using 4-0 Monocryl and surgical glue. Patient woke up from anesthesia without any complications and was transferred to PACU. Condition: Stable Dispostion: Home
[2024-02-13] MEDS: HYDROmorphone 1 mg/mL INJ 1 mL 0.25 MG IVP (14:45)
[2024-02-13] MEDS: HYDROcodone-acetaminophen 5-325 mg Tablet 1 TAB PO (15:06)
--- NOTE | 2024-02-13 15:40 | ANE.PACU2 ---
Inpatient post-anesthesia follow up: Airway intact: Yes Vital signs: Temperature 97.6 F Pulse Rate 561 Respiratory Rate 18 Blood Pressure 172/81 Pulse Oximetry 95 Oxygen Delivery Me thod Room Air Oxygen Flow Rate 6 Fraction of Inspir ed Oxygen Hydration adequate: Yes Nausea and vomiting: No Pain level: 1 Mental status: Baseline
== END 2024-02-13 13:42 | disposition home or self-care (01) ==
PROVIDERS: PCP Family Medicine; Visit Provider Student in an Organized Health Care Education/Training Program
PROC: 0WQF0ZZ Repair Abdominal Wall, Open Approach (ICD-10-PCS; CPT 49593; principal; 2024-02-13 10:05)
DX: K43.9 Ventral hernia without obstruction or gangrene (principal); J44.9 Chronic obstructive pulmonary disease, unspecified; I10 Essential (primary) hypertension; F41.9 Anxiety disorder, unspecified; F17.210 Nicotine dependence, cigarettes, uncomplicated
CPT/HCPCS: 49593; J0360; J0690; J1100; J1170; J2405; J2704; J2710; J3010; J3490; J7030

== ENCOUNTER → 2024-02-28 08:35 | Outpatient (BNVA) | payer MEDICARE, SELFPAY | PROVIDERS: PCP Family Medicine; Visit Provider Student in an Organized Health Care Education/Training Program | DX: Z98.890 Other specified postprocedural states (principal) | CPT/HCPCS: 99024 ==

== ENCOUNTER 2024-05-29 13:34 | Outpatient (CLI) | payer MEDICARE, SELFPAY ==
--- NOTE | 2024-05-29 13:30 | CT_ITS ---
WS: [id number] CT chest w con* [id number] HISTORY: lung mass TECHNIQUE: Axial imaging performed through the thorax. Coronal and sagittal reformats are submitted. All CT scans at [facility] use at least one of these dose optimization techniques: automated exposure control; mA and/or kV adjustment per patient size (includes targeted exams where dose is mat ched to clinical indication); or iterative reconstruction. CONTRAST: Omnipaque 350; 100 mL IV. DLP: 351.75 mGy.cm COMPARISON: 01/31/2024, 12/13/2020, 12/06/2022 Lungs and central airway: There is continued volume loss with atelectasis at the LEFT lung base. No m ass or obstructing lesion is identified. No obstructing lesion is identified. There is been very mild progression of atelectasis since 2020. Pleura: Normal. No pleural effusion. Heart and pericardium: Normal size heart with no pericardial effusion. Mediastinum and abel: No mediastinum or hilar adenopathy. Small air-fluid level in the midesophagus. Vessels: Mild atherosclerosis aorta. No aneurysm. Normal size pulmonary artery. Chest wall and lower neck: Bilateral gynecomastia. Upper abdomen: No adrenal mass. Stomach is moderately distended with air and food products. Prior cho lecystectomy. Osseous structures: Moderate thoracic spondylosis. CT/CT chest w con* [id number] IMPRESSION: 1. Continued subsegmental atelectasis at the LEFT lung base. Minimal progressi on since 2020. No obstructing lesion is identified. There are no suspicious mas ses or enlarging masses. 2. Small air-fluid level in the midesophagus. Probably from reflux disease. 3. No adenopathy. 4. Prior cholecystectomy.
[2024-05-29 14:03] LABS: Blood Urea Nitrogen 16 mg/dL (8-23); Glomerular Filtration Rate 60.8 mL/min (90-130)
[2024-05-29] MEDS: iohexol 350 mg/mL 500 mL Btl (per mL) IV (14:21)
== END 2024-05-29 13:35 | disposition home or self-care (01) ==
PROVIDERS: PCP Family Medicine; Visit Provider Family Medicine
DX: R91.8 Other nonspecific abnormal finding of lung field (principal); J98.11 Atelectasis; N62 Hypertrophy of breast; Z90.49 Acquired absence of other specified parts of digestive tract; M47.814 Spondylosis without myelopathy or radiculopathy, thoracic region
CPT/HCPCS: 71260; 82565; 84520

== ENCOUNTER → 2024-10-03 16:18 | Outpatient (BNVA) | payer MEDICARE, SELFPAY | PROVIDERS: PCP Family Medicine; Visit Provider Family Medicine | DX: N40.1 Benign prostatic hyperplasia with lower urinary tract symptoms (principal); R39.12 Poor urinary stream; Z12.5 Encounter for screening for malignant neoplasm of prostate | CPT/HCPCS: 84153 ==